=== PATIENT | male | born 1955 | race Caucasian/White ===

== ENCOUNTER → 2017-04-11 | Outpatient (CLI) | payer BC, OTHER ==
--- NOTE | 2017-04-11 09:43 | Diagnostic Imaging Report ---
INDICATION: Hematuria, history of stones. TECHNIQUE: Supine view of the abdomen 8:42 AM CORRELATION STUDY: None FINDINGS: 11 mm stone projects over the inferior pole of the right kidney. 2.2 cm in the right hemipelvis is present. Additional smaller calcifications in similar location over the left hemipelvis. May be punctate calcification of the inferior pole of the left kidney. Large amount of overlying bowel gas and stool obscures detail. Joint space narrowing both hips. IMPRESSION: 1. Calcification of the inferior pole of the right kidney favors probable nonobstructing renal stone. Additional calcifications in the pelvis are present could be reflective of underlying bladder stones. One of this does measure greater than 2 cm. 2. Moderate amount of overlying bowel gas and stool. Dictated by: Dictated on workstation # [id number]
--- NOTE | 2017-04-11 10:19 | Diagnostic Imaging Report ---
PROCEDURE: CT abdomen and pelvis without contrast. TECHNIQUE: Multiple contiguous axial images were obtained through the abdomen and pelvis without the use of intravenous contrast. INDICATION: Kidney stones. Hematuria. FINDINGS: The lung bases appear clear. The liver, the gallbladder, the spleen, the pancreas, and the adrenal glands appear unremarkable about an unenhanced exam. There is a stone measuring 9 mm in the lower pole of the right kidney and two stones in the upper pole of the right kidney measuring up to 4 mm. The left kidney demonstrates no stones. No hydronephrosis on either side. There is a stone in the urinary bladder measuring 1.9 cm. Prostate calcifications are seen. There is normal appendix. Extensive diverticulosis is seen. No diverticulitis. A hyperdense lesion in the upper pole of the kidney measuring 1.1 cm in size is probably a hemorrhagic cyst. No significant free fluid or fluid collection in the abdomen or pelvis is noted. There is a tiny fat-containing umbilical hernia. There is an infrarenal abdominal aortic aneurysm measuring 4 cm in maximum diameter. This compares to 3.6 cm on 06/04/2014. No para-aortic significantly enlarged lymph node is seen. The osseous structures demonstrate mild degenerative changes. IMPRESSION: 1. A 1.9 cm urinary bladder stone. 2. Nonobstructive right kidney stones up to 0.9 cm in the lower pole. No hydronephrosis. 3. Infrarenal AAA measuring 4 cm, compared to 3.6 cm in 2014. 4. Extensive diverticulosis. No diverticulitis. Dictated by: Dictated on workstation # [id number]
== END ==
LOC: RAD 08:09
PROVIDERS: ATTEND Urology
DX: N21.0 Calculus in bladder (principal); N20.0 Calculus of kidney; I71.4 Abdominal aortic aneurysm, without rupture; K57.90 Diverticulosis of intestine, part unspecified, without perforation or abscess without bleeding
CPT/HCPCS: 74000; 74176

== ENCOUNTER 2017-05-16 05:41 | Outpatient (CLI) | payer OTHER ==
[~2017-05-16] VITALS: Ht 174 cm; Wt 77.1 kg
[2017-05-16] MEDS ORDERED: OMG1KC PO (09:10)
[2017-05-16] MEDS ORDERED: LEVO50TA6 PO (09:10)
[2017-05-16] MEDS ORDERED: MULT-178 PO (09:10)
[2017-05-16] MEDS ORDERED: ASPI-586 PO (09:10)
[2017-05-16] MEDS ORDERED: SIMV40TA4 PO (09:10)
[2017-05-16] MEDS ORDERED: LISI-556 PO (09:10)
[2017-05-16] MEDS ORDERED: CHOL200025 PO (09:10)
[2017-05-17] MEDS ORDERED: LEVO500T2 PO (10:11)
[2017-05-17] MEDS ORDERED: HYDR-3875 PO (10:11)
[2017-05-17] MEDS ORDERED: TAMS0.4C98 PO (10:11)
== END 2017-05-16 09:15 ==
LOC: PREOP 05:41
PROVIDERS: ATTEND Urology
DX: Z01.818 Encounter for other preprocedural examination (principal); N21.0 Calculus in bladder; N20.0 Calculus of kidney

== ENCOUNTER 2017-05-17 06:23 | Day surgery (SDC) | payer OTHER ==
[~2017-05-17] VITALS: Ht 174 cm; Wt 77.1 kg
[~2017-05-17 06:23] MED LIST: ASPI-586 PO; CHOL200025 PO; LEVO50TA6 PO; LISI-556 PO; MULT-178 PO; OMG1KC PO; SIMV40TA4 PO
[2017-05-17] MEDS ORDERED: proPOfol 200 MG/20 ML (DIPRIVAN) VIAL IV ONE ×2 (07:00→08:27)
[2017-05-17] MEDS ORDERED: LIDOCAINE PF 2% 5 ML (XYLOCAINE) VIAL ONE (07:00)
[2017-05-17] MEDS ORDERED: MIDAZOLAM 2 MG/2 ML (VERSED) VIAL ONE (07:01)
[2017-05-17] MEDS ORDERED: fentaNYL INJECTION 100 MCG/2 ML AMP ONE (07:01)
--- NOTE | 2017-05-17 07:01 | Progress Note-Pre Operative ---
Pre-Operative Progress Note H&P Reviewed The H&P was reviewed, patient examined and no changes noted. Date Seen by Provider: May 17, 2017 Time Seen by Provider: 07:01 Date H&P Reviewed: May 17, 2017 Time H&P Reviewed: 07:01 Pre-Operative Diagnosis: BPH, BLADDER STONE AND RT RENAL STONES ROMERO JONES MD May 17, 2017 7:01 am
--- NOTE | 2017-05-17 07:08 | Progress Note-Post Operative ---
Post-Operative Progess Note Surgeon (s)/Brood Station Manager (s) Surgeon ROMERO JONES MD Brood Station Manager: N/A Pre-Operative Diagnosis BPH, BLADDER STONE AND RT RENAL STONES Post-Operative Diagnosis SAME Procedure & Operative Findings Date of Procedure 05/17/17 Procedure Performed/Findings CYSTOLITHOTRIPSY AND RT ESWL Anesthesia Type GENERAL Estimated Blood Loss Estimated blood loss (mL): N/A Specimens/Packing Specimens Removed BLADDER STONE FRAGMENTS Packing: N/A ROMERO JONES MD May 17, 2017 7:08 am
--- NOTE | 2017-05-17 07:10 | Discharge Inst-Urology ---
Discharge Inst-Urology Discharge Medications New, Converted, or Re-newed RX: RX on Chart Patient Instructions/Follow Up Plan Please make appointment to been seen in office in 2 weeks. KUB prior to it KUB on way home Post ESWL instructions Increase oral fluids for 48 hours and then as needed. Diet and Activity as tolerated. If questions or concerns contact your physician Or seek help at emergency department. ROMERO JONES MD May 17, 2017 7:10 am
[2017-05-17] MEDS ORDERED: cefTRIAXone 1 GM/NS 50 ML IVPB IV ONE ×2 (07:15)
[2017-05-17] MEDS: LACTATED RINGERS 1,000 ML IV PRN ×2 (07:26→08:36)
[2017-05-17 07:27] VITALS: BP 142/89
--- NOTE | 2017-05-17 07:40 | Diagnostic Imaging Report ---
INDICATION: Urinary tract calculi Single supine image of the abdomen is obtained. Findings are similar when compared to the previous study with an approximately 0.7 cm calculus projecting over the midportion of the right kidney. Smaller calcifications are also seen in the right kidney. There may be minimal left renal calcification. Note is made of an approximately 2.3 cm calcification to the right of midline in the pelvis which may represent bladder stone. Approximately 0.9 cm calcification is seen in the left hemipelvis with prostatic calcifications also noted. Overall, these findings have not significantly changed. IMPRESSION: Numerous urinary tract calculi similar to previous study. Dictated by: Dictated on workstation # [id number]
[2017-05-17] MEDS ORDERED: SUCCINYLCHOLINE INJ 100 MG/5 ML SYR ONE (07:44)
[2017-05-17] MEDS ORDERED: PHENYLEPHRINE 100 MCG/ML 10 ML (ANESTHESIA) SYR ONE (07:44)
[2017-05-17] MEDS ORDERED: SEVOFLURANE (ULTANE) 15 ML INHAL SOLN ONE ×2 (07:45→08:50)
[2017-05-17] MEDS ORDERED: KETOROLAC 30 MG/ML VIAL ONE (08:27)
[2017-05-17] MEDS ORDERED: FUROSEMIDE 40 MG/4 ML INJ (LASIX) ONE (08:27)
[2017-05-17 09:50] VITALS: BP 130/85
[2017-05-17] MEDS ORDERED: LEVO500T2 PO (10:11)
[2017-05-17] MEDS ORDERED: TAMS0.4C98 PO (10:11)
[2017-05-17] MEDS ORDERED: HYDR-3875 PO (10:11)
[2017-05-17 10:20] VITALS: BP 134/89
[2017-05-17 10:50] VITALS: BP 146/91
[2017-05-17 11:11] VITALS: BP 146/91
--- NOTE | 2017-05-17 12:03 | OPERATIVE REPORT ---
DATE OF SERVICE: 05/17/2017 PREOPERATIVE DIAGNOSES: 1. Benign prostatic hypertrophy. 2. Bladder stone. 3. Right renal stones. POSTOPERATIVE DIAGNOSES: 1. Benign prostatic hypertrophy. 2. Bladder stone. 3. Right renal stones. OPERATION PERFORMED: Cystolithotripsy and right ESWL. SURGEON: Steven Jones MD. ANESTHESIA: General. COMPLICATIONS: None. PROCEDURE: Under satisfactory general anesthesia, the patient in lithotomy position in the cystoscopy suite. Genitalia were prepped and draped in the usual sterile fashion. A cystoscope was introduced under vision and again visualized the large bladder stone. I completely fragmented it with the LithoClast. I irrigated all the fragments out. The bladder was free of any fragments, displaced except from sediment. I removed the cystoscope, inserted a 16-Yakut Vilchis catheter, connected to gravity, moved the patient on the ESWL table, the right lower pole and the stone was localized. Shocks were delivered at kV of 5. A total of 2500 shocks completely fragmented the stone into 2 small stones in the upper pole. Not the of ESWL. The patient received 40 mg of Lasix and 30 mg of Toradol IV at the end of the procedure. He tolerated the procedure and anesthesia well and was sent to recovery room in stable condition. Catheter was removed at the end of the procedure. Job ID: [id number] DocumentID: [id number] Dictated Date: 05/17/2017 08:44:42 Hide And Skin Fleshing Machine Operator Date: 05/17/2017 12:03:06 Dictated By: STEVEN JONES MD
--- NOTE | 2017-05-17 12:25 | Diagnostic Imaging Report ---
EXAMINATION: Supine abdomen at 11:06 a.m. INDICATION: Post ESWL. FINDINGS: The exam performed earlier today at 7:01 a.m. noted a 23 mm oval calcification overlying the ureterovesical junction on the right. That finding is not clearly evident on this study. Most likely calcification has been fragmented by ESWL. There may be a few minute fragments of that calcification still present. The 7.5 mm calcification overlying the right kidney seen previously is also much smaller and now measures only 3.2 mm. The 9.5 mm tubular calcification in the region of the left ureterovesical junction seen previously is again evident and essentially no different. There are also prostatic calcifications again visualized. No other pathological calcification is noted. IMPRESSION: The calcifications overlying the right kidney and the right uterovesical junction seen on the previous study are much smaller following ESWL. A followup exam would be recommended for continued evaluation. Dictated by: Dictated on workstation # [id number]
== END 2017-05-17 11:11 | disposition home or self-care (01) ==
LOC: SDC 06:23
PROVIDERS: ATTEND Urology
DX: N20.0 Calculus of kidney (principal); N21.0 Calculus in bladder; N40.0 Benign prostatic hyperplasia without lower urinary tract symptoms; I10 Essential (primary) hypertension; E03.9 Hypothyroidism, unspecified; F17.210 Nicotine dependence, cigarettes, uncomplicated; Z79.82 Long term (current) use of aspirin; Z79.899 Other long term (current) drug therapy
CPT/HCPCS: 74018; 87081

== ENCOUNTER 2017-05-31 16:32 | Outpatient (RCR) | payer OTHER | END 2017-06-02 17:50 | disposition home or self-care (01) | LOC: LAB 16:32 | PROVIDERS: ATTEND Urology | DX: N20.0 Calculus of kidney (principal) | CPT/HCPCS: 36415; 82140; 82340; 82507; 82570; 83735; 83945; 83986; 84105; 84133; 84300; 84392; 84560; 88300 ==

== ENCOUNTER → 2017-05-31 | Outpatient (CLI) | payer OTHER ==
[~2017-05-31] MED LIST changes: +HYDR-3875 PO; +LEVO500T2 PO; +TAMS0.4C98 PO
--- NOTE | 2017-05-31 15:04 | Diagnostic Imaging Report ---
INDICATION: Status post ESWL. COMPARISON: 04/11/2017. FINDINGS: Two supine radiographic views of the abdomen were obtained. Calculi are again noted within the left hemipelvis. Multiple calculi are also noted in a steinstrasse orientation in the right hemipelvis; likely within the distal right ureter. No abnormal calculi are seen projecting over the renal shadows on either side. No unexpected radiopaque foreign bodies are identified. Small bowel loops are nondistended. There is no large collection or free intraperitoneal air. Included portions of the lung bases are clear. IMPRESSION: 1. Likely multiple calculi within the distal right ureter. 2. Nonobstructed small bowel gas pattern. Dictated by: Dictated on workstation # [id number]
== END ==
LOC: RAD 14:30
PROVIDERS: ATTEND Urology
DX: N20.0 Calculus of kidney (principal); Z98.890 Other specified postprocedural states
CPT/HCPCS: 74018

== ENCOUNTER → 2020-01-29 | Outpatient (CLI) | payer MEDICARE, OTHER ==
[~2020-01-29] MED LIST changes: +SIMV40TA25 PO; -SIMV40TA4 PO; -TAMS0.4C98 PO; +TMSL.4C PO
[2020-01-29 12:08] LABS: CREATINE KINASE MB 1.4 NG/ML (<6.6)
== END ==
LOC: LABNPT 11:35
PROVIDERS: ATTEND Nurse Practitioner Family
DX: I45.10 Unspecified right bundle-branch block (principal)
CPT/HCPCS: 82553; 83874; 84484

== ENCOUNTER 2020-10-09 01:26 | Emergency (ER) | payer MEDICARE, OTHER ==
[~2020-10-09] VITALS: Ht 172.7 cm; Wt 83.3 kg
[~2020-10-09 01:26] MED LIST changes: -LISI-556 PO; +LISI-729 PO
[2020-10-09] MEDS ORDERED: DOCUSATE SODIUM 10 MG/ML 10 ML UDC (COLACE) RIGHT EAR ONE (02:00)
[2020-10-09] MEDS ORDERED: RX-NEO/POLYB/HC OTIC (CORTISPORIN) SUSP 10 ML BTL OT STA (03:14)
--- NOTE | 2020-10-09 03:18 | ED EENT ---
History of Present Illness General Chief Complaint: Foreign Body Stated Complaint: POSS BUG IN RT EAR Nursing Triage Note: PATIENT STATES THAT THIS EVENING HE FELT SOMETHING CRAWL IN HIS RIGHT EAR. HE ATTEMPTED TO USE A SWAB TO GET IT OUT AND THEN FLUSHED IT WITH WATER AND WAS UNSUCCESSFUL. HE DESCRIBES THE FEELING SOMETHING "PACKED IN THERE" BUT DENIES A FEELING OF PRESSURE. Source: patient Exam Limitations: no limitations History of Present Illness Date Seen by Provider: Oct 09, 2020 Time Seen by Provider: 01:45 Initial Comments This 65-year-old gentleman presents to the emergency room with sensation of something moving around in his right ear canal. He thinks he has an insect in his ear. He is not in pain. Allergies and Home Medications Allergies Coded Allergies: No Known Drug Allergies (Unverified , 05/16/17) Home Medications Cholecalciferol (Vitamin D3) 2,000 Unit Tablet, 2,000 UNIT PO DAILY, (Reported) Hydrocodone/Acetaminophen 1 Each Tablet, 1-2 TAB PO Q4H PRN for PAIN Prescribed by: IBIS MERCER on 05/17/17 1011 Levofloxacin 500 Mg Tablet, 500 MG PO DAILY Prescribed by: IBIS MERCER on 05/17/17 1011 Levothyroxine Sodium 50 Mcg Tablet, 50 MCG PO DAILY, (Reported) Lisinopril 5 Mg Tablet, 5 MG PO DAILY, (Reported) Multivitamin 1 Each Tablet, 1 EACH PO DAILY, (Reported) [place] 3 Polyunsat Fatty Acids 1,000 Mg Cap, 1,000 MG PO BID, (Reported) Simvastatin 40 Mg Tablet, 40 MG PO HS, (Reported) Tamsulosin HCl 0.4 Mg Cap, 0.4 MG PO DAILY Prescribed by: IBIS MERCER on 05/17/17 1011 Patient Home Medication List Home Medication List Reviewed: Yes Review of Systems Review of Systems Constitutional: no symptoms reported Ears: See HPI Neurological: No Symptoms Reported Past Ybtepna-Nadhnf-Sejiap Hx Past Med/Social Hx: Reviewed Nursing Past Med/Soc Hx Patient Social History Type Used: Cigarettes Recent Infectious Disease Expo: No Recent Hopitalizations: No Immunizations Up To Date Tetanus Booster (TDap): Unknown Seasonal Allergies Seasonal Allergies: No Past Medical History Surgeries: Yes Renal (ESWL) Respiratory: No Cardiac: Yes Hypertension Neurological: No Reproductive Disorders: No Genitourinary: Yes Benign Prostatic Hyperpl, Kidney Stones Gastrointestinal: Yes Abdominal Hernia Musculoskeletal: No Endocrine: Yes Hypothyroidsim HEENT: No Loss of Vision: Bilateral Hearing Impairment: Denies Cancer: No Psychosocial: No Physical Exam Vital Signs Vital Signs - First Documented 10/09/20 01:37 Temp 36.6 Pulse 108 Resp 22 B/P (MAP) 187/108 (134) Pulse Ox 91 O2 Delivery Room Air Height, Weight, BMI Height: 5'8.50" Weight: 170lbs. 0.0oz. [id number]; 27.00 BMI Method: General Appearance: WD/WN, no apparent distress Eyes: bilateral eye normal inspection, bilateral eye PERRL, bilateral eye EOMI Ears: right ear other (Impaction in the right ear. After irrigating, tympanic membrane is noted to be red and injected.); left ear canal normal; bilateral ear auricle normal Nose: normal inspection Neck: non-tender, supple Progress/Results/Core Measures Results/Orders My Orders Orders - DEXTER MENA MD Docusate Sodium Oral Solution (Colace Or (10/09/20 02:00) Rx-Silvino/Poly/Hc Otic Susp (Rx-Cortisporin (10/09/20 03:14) Vital Signs/I&O Blood Pressure Mean: 134 Progress Progress Note : Progress Note Cerumen impaction was found on the right. It was soaked with Colace. Nursing staff then irrigated with a trimmed 18-gauge IV catheter and a syringe. Irrigation was performed with water. A large amount of wax was washed out. Tympanic membranes was erythematous as now seen irrigation. Is uncertain if the otitis externa existed prior to irrigation. Cortisporin drops were dispensed. Departure Impression Primary Impression: Impacted cerumen, right ear Disposition: HOME, SELF-CARE Condition: Improved Departure-Patient Inst. Decision time for Depature: 03:17 Referrals: RUIZ LOVETT DO (PCP/Family) Primary Care Physician Patient Instructions: Ear Wax Impaction ED Add. Discharge Instructions: Your eardrum and ear canal are rather irritated after irrigation of the wax impaction. There may have been some pre-existing infection behind the wax. Use the provided eardrops to treat this. Apply 4 drops in the right ear 4 times a day for the next 2 or 3 days or as long as it takes for discomfort to resolve. Avoid using Q-tips except on the very rim of your ear canal as Q-tips may shove some of the wax deeper causing an impaction. Liquid [id number] earwax removal products are a good way to clear your ears of earwax. Call with questions or concerns. Return to care if you have worsening symptoms. All discharge instructions reviewed with patient and/or family. Voiced understanding. DEXTER MENA MD Oct 09, 2020 03:18
[2020-10-09 03:31] VITALS: BP 146/94
== END 2020-10-09 03:34 | disposition home or self-care (01) ==
LOC: EDUNIT# 01:26 → ER 01:32
DX: H61.21 Impacted cerumen, right ear (principal); I10 Essential (primary) hypertension; E03.9 Hypothyroidism, unspecified; N40.0 Benign prostatic hyperplasia without lower urinary tract symptoms; Z79.890 Hormone replacement therapy; Z79.899 Other long term (current) drug therapy
CPT/HCPCS: 99283